=== PATIENT | male | born 1955 | race Caucasian/White ===

== ENCOUNTER → 2024-08-18 | Outpatient (RCR) | payer MEDICARE | LOC: PT 07-29 13:52 | PROVIDERS: ATTEND Orthopaedic Surgery | DX: M75.101 Unspecified rotator cuff tear or rupture of right shoulder, not specified as traumatic (principal) ==

== ENCOUNTER → 2024-09-17 | Outpatient (RCR) | payer MEDICARE | LOC: PT 08-20 09:25 | PROVIDERS: ATTEND Orthopaedic Surgery | DX: S46.091A Other injury of muscle(s) and tendon(s) of the rotator cuff of right shoulder, initial encounter (principal) ==